=== PATIENT | female | born 1990 | race Caucasian/White ===

== ENCOUNTER 2018-05-03 01:35 | Emergency (ER) | payer OTHER ==
[~2018-05-03] VITALS: Ht 157.5 cm; Wt 45.5 kg
[2018-05-03] MEDS ORDERED: MORPHINE SULFATE 4 MG/ML CPJ (NOT FOR IM USE) IV STA (02:24)
[2018-05-03] MEDS ORDERED: SODIUM CHLORIDE 0.9% 1,000 ML IV ONE (02:24)
[2018-05-03] MEDS ORDERED: ONDANSETRON HCL 4MG/2ML INJ IV STA (02:24)
[2018-05-03] MEDS ORDERED: CEFAZOLIN 1000MG PREMIX 50 ML IV ONE (02:30)
[2018-05-03] MEDS ORDERED: BACITRACIN ZINC OINT UDPKT TOP ONE (02:30)
[2018-05-03] MEDS ORDERED: MORPHINE SULFATE 10 MG/ML CPJ IV NR (02:45)
[2018-05-03 02:54] LABS: BASOPHILS % 0.3 % (0.0-2.0); EOSINOPHILS % 0.5 % (0.0-5.0); HEMATOCRIT. 36.6 % (36.0-48.0); HEMOGLOBIN. 12.5 g/dL (12.0-16.0); LYMPHOCYTES % 24.1 % (20.0-50.0); MEAN CORPUSCULAR HEMOGLOBIN 31.9 pg (28.0-32.0); MEAN CORPUSCULAR VOLUME 93.8 fL (81.0-99.0); MEAN PLATELET VOLUME 11.2 fl (7.4-10.4); MONOCYTES % 6.6 % (2.0-8.0); NEUTROPHILS % 68.5 % (40.0-76.0); PLATELET 188 x1000/uL (130-400); RED BLOOD CELL COUNT 3.91 mill/uL (4.2-5.4); RED CELL DISTRIBUTION WIDTH 13.3 % (11.6-14.6)
[2018-05-03 02:58] LABS: CHLORIDE 104 mEq/L (98-107)
[2018-05-03 03:02] LABS: PARTIAL THROMBOPLASTIN TIME 22.9 sec (23.4-31.0); PROTHROMBIN TIME 10.3 sec (9.1-11.1)
[2018-05-03 03:06] LABS: HCG SCREEN NEGATIVE
[2018-05-03] MEDS ORDERED: IOHEXOL-300 100 ML BOTTLE ONE (04:36)
[2018-05-03] MEDS ORDERED: HYDROMORPHONE HCL/PF 2MG/ML CPJ IV ONE (06:15)
[2018-05-03 08:24] VITALS: BP 104/65
== END 2018-05-03 08:44 | disposition short-term general hospital (02) ==
LOC: ER 01:53
DX: J93.9 Pneumothorax, unspecified (principal); R58 Hemorrhage, not elsewhere classified; S42.001A Fracture of unspecified part of right clavicle, initial encounter for closed fracture; S92.901A Unspecified fracture of right foot, initial encounter for closed fracture; S62.611A Displaced fracture of proximal phalanx of left index finger, initial encounter for closed fracture; S22.31XA Fracture of one rib, right side, initial encounter for closed fracture; Y92.410 Unspecified street and highway as the place of occurrence of the external cause; F17.200 Nicotine dependence, unspecified, uncomplicated; V49.9XXA Car occupant (driver) (passenger) injured in unspecified traffic accident, initial encounter; Y93.89 Activity, other specified
CPT/HCPCS: 36415; 70450; 71260; 72125; 73030; 73130; 73610; 73630; 74177; 80053; 83690; 84703; 85025; 85610; 85730; 86850; 86900; 86901; 96365; 96375; 99291; J0690; J1170; J2270; J2405; J7030; Q9967